=== PATIENT | male | born 1955 | race African-American/Black ===

== ENCOUNTER 2024-09-04 20:05 | Emergency (ER) | payer MEDICARE, MEDICAID ==
[~2024-09-04] VITALS: Ht 172.7 cm; Wt 82.0 kg
[2024-09-04 20:07] VITALS: TEMP 36.9; O2SAT 99
[2024-09-04] MEDS ORDERED: NAPR-677 MT (22:23)
[2024-09-04] MEDS: KETOROLAC 15MG/ML VIAL IM ONE (23:23)
[2024-09-05 00:20] VITALS: BP 138/111; PULSE 84; RESP 18; O2SAT 100
== END 2024-09-05 01:01 | disposition home or self-care (01) ==
LOC: ER 20:05
DX: M17.12 Unilateral primary osteoarthritis, left knee (principal); F03.90 Unspecified dementia, unspecified severity, without behavioral disturbance, psychotic disturbance, mood disturbance, and anxiety; I10 Essential (primary) hypertension; Z79.1 Long term (current) use of non-steroidal anti-inflammatories (NSAID); Z88.8 Allergy status to other drugs, medicaments and biological substances
CPT/HCPCS: 99285; 93971; 73560; 96372; J1885